=== PATIENT | male | born 1970 | race African-American/Black ===

== ENCOUNTER 2017-06-30 14:10 | Inpatient (IN) | payer OTHER ==
[2017-06-30 16:16] VITALS: BMI 28.7
[2017-06-30] MEDS ORDERED: MENTHOL/PHENOL 1 EACH UD MM PRN (16:42)
[2017-06-30] MEDS ORDERED: hydrOXYzine PAMOATE 50 MG CAPSULE (FP) PO PRN (16:42)
[2017-06-30] MEDS ORDERED: chlordiazePOXIDE HCL 25 MG CAPSULE PO PRN (16:42)
[2017-06-30] MEDS ORDERED: MAG HYDROX/AL HYDROX/SIMETH 30 ML UNIT-DOSE CUP PO PRN (16:42)
[2017-06-30] MEDS ORDERED: LOPERAMIDE HCL 2 MG CAPSULE PO PRN (16:42)
[2017-06-30] MEDS ORDERED: chlordiazePOXIDE HCL 25 MG CAPSULE PO ONE (16:42)
[2017-06-30] MEDS ORDERED: guaiFENesin/D-METHORPHAN HB 10 ML UNIT-DOSE CUPS PO PRN (16:42)
[2017-06-30] MEDS ORDERED: NICOTINE POLACRILEX 2 MG GUM BC PRN (16:42)
[2017-06-30] MEDS ORDERED: P-EPHED 60MG/TRIPROLIDI 2.5MG TABLET PO PRN (16:42)
[2017-06-30] MEDS ORDERED: MAGNESIUM HYDROX 2400MG/30ML ORAL SUSPENSION 30 ML CUP PO PRN (16:42)
[2017-06-30] MEDS ORDERED: MAGNESIUM CITRATE 300 ML BOTTLE PO PRN (16:42)
--- NOTE | 2017-06-30 16:42 | HP ---
CIWA Score - CIWA Score Nausea/Vomitin Muscle Tremors: 4-Moderate,w/Arms Extend Anxiety: 4-Mod. Anxious/Guarded Agitation: 4-Moderately Restless Paroxysmal Sweats: 3 Orientation: 0-Oriented Tacttile Disturbances: 0-None Auditory Disturbances: 0-None Visual Disturbances: 0-None Headache: 4-Moderately Severe CIWA-Ar Total Score: 22 Admission ROS BHS - HPI Chief Complaint: alcohol withdrawal sx Allergies/Adverse Reactions: Allergies Allergy/AdvReac Type Severity Reaction Status Date / Time No Known Allergies Allergy Verified 06/30/17 16:30 History of Present Illness: 47 yo m started drinking heavily age 32, drinks daily spirits last drink today liquor [place] no h/o seiuzres, no DTs smokes cannbis and cocaine daily also sniffs PMHx depression, insomnia, PTSD, HTN has ot been takingmeds hctz 12.5mg daily. no h/o suicide attempts reports SAEID when he does not drink. here today because " heneeded the help" Exam Limitations: No Limitations - Ebola screening Have you traveled outside of the country in the last 21 days: No Have you had contact with anyone from an Ebola affected area: No Have you been sick,other than usual withdrawal symptoms: No Do you have a fever: No - Review of Systems Constitutional: Chills, Diaphoresis, Night Sweats, Changes in sleep, Weakness, Weight Stable EENT: reports: No Symptoms Reported Respiratory: reports: Cough (smokers, dry no sputum) Cardiac: reports: No Symptoms Reported GI: reports: Nausea, Poor Appetite, Poor Fluid Intake, Indigestion, Abdominal cramping : reports: No Symptoms Reported Musculoskeletal: reports: No Symptoms Reported Integumentary: reports: Flushing, Sweating Neuro: reports: Headache (severe), Numbness, Paresthesia, Tingling, Tremors, Weakness Endocrine: reports: No Symptoms Reported Hematology: reports: No Symptoms Reported Psychiatric: reports: Judgement Intact, Mood/Affect Appropiate, Agitated, Anxious, Depressed Other Systems: Reviewed and Negative Patient History - Patient Medical History Hx Anemia: No Hx Asthma: No Hx Chronic Obstructive Pulmonary Disease (COPD): No Hx Cancer: No Hx Cardiac Disorders: No Hx Congestive Heart Failure: No Hx Hypertension: Yes (non compliant with meds.) Hx Hypercholesterolemia: No Hx Pacemaker: No HX Cerebrovascular Accident: No Hx Seizures: No Hx Dementia: No Hx Diabetes: No Hx Gastrointestinal Disorders: No Hx Liver Disease: No Hx Genitourinary Disorders: No Hx Sexually Transmitted Disorders: No Hx Renal Disease (ESRD): No Hx Thyroid Disease: No Hx Human Immunodeficiency Virus (HIV): No Hx Hepatitis C: No Hx Depression: Yes (PTSD in ) Hx Suicide Attempt: No Hx Bipolar Disorder: No Hx Schizophrenia: No Other Medical History: insomnia - Patient Surgical History Past Surgical History: No Anesthesia Reaction: No - PPD History Previous Implant?: Yes Documented Results: Negative w/o proof Implanted On Prior [facility] Admission?: Yes PPD to be Administered?: Yes - Reproductive History Patient is a Female of Child Bearing Age (11 -55 yrs old): No Patient : No - Smoking Cessation Smoking history: Current every day smoker Have you smoked in the past 12 months: Yes Aproximately how many cigarettes per day: 10 Hx Chewing Tobacco Use: No Initiated information on smoking cessation: Yes 'Breaking Loose' booklet given: 06/30/17 - Substance & Tx. History Hx Alcohol Use: Yes Hx Substance Use: Yes Substance Use Type: Alcohol, Cocaine, Marijuana Hx Substance Use Treatment: Yes - Substances Abused Alcohol Route: Oral Frequency: Daily Amount used: 2 pints vodka Age of first use: 32 Date of Last Use: 06/30/17 Cocaine Route: Inhalation Frequency: Daily Amount used: $50-100 Age of first use: 31 Date of Last Use: 06/30/17 Marijuana/Hashish Route: Smoking Frequency: Daily Amount used: $40 Age of first use: 35 Date of Last Use: 06/29/17 Family Disease History - Family Disease History Family Disease History: Other: Brother (elephatiasis) Admission Physical Exam BHS - Vital Signs Vital Signs: Vital Signs - 24 hr 06/30/17 16:14 Temperature 97.2 F L Pulse Rate 69 Respiratory 20 Rate Blood Pressure 133/96 - Physical General Appearance: Yes: Nourished, Appropriately Dressed, Disheveled, Mild Distress, Tremorous, Irritable, Sweating, Anxious HEENTM: Yes: Within Normal Limits, EOMI, Hearing grossly Normal, Normal ENT Inspection, Normocephalic, Pharynx Normal Respiratory: Yes: Within Normal Limits, Chest Non-Tender, Lungs Clear, Normal Breath Sounds, No Respiratory Distress, No Accessory Muscle Use Neck: Yes: Within Normal Limits, No masses,lesions,Nodules, Supple, Trachea in good position Breast: Yes: Breast Exam Deferred Cardiology: Yes: Within Normal Limits, Regular Rhythm, Regular Rate, S1, S2 Abdominal: Yes: Normal Bowel Sounds, Non Tender, Flat, Soft, Increased Bowel Sounds Genitourinary: Yes: Within Normal Limits Back: Yes: Within Normal Limits, Normal Inspection Musculoskeletal: Yes: Within Normal Limits, full range of Motion, Gait Steady, Pelvis Stable Neurological: Yes: anesthesia associate II-XII NML intact, Fully Oriented, Alert, Motor Strength 5/5, Normal Response, Depressed Affect Integumentary: Yes: Normal Color, Warm, Diaphoresis, Moist Lymphatic: Yes: Within Normal Limits - Addiitonal Findings: alcohol withdrawal sx - Diagnostic (1) Alcohol dependence with uncomplicated withdrawal Current Visit: Yes Status: Acute (2) Cocaine dependence, uncomplicated Current Visit: Yes Status: Acute (3) Cannabis dependence, uncomplicated Current Visit: Yes Status: Acute (4) Essential hypertension Current Visit: Yes Status: Acute (5) Insomnia Current Visit: Yes Status: Acute (6) Depression Current Visit: Yes Status: Acute (7) PTSD (post-traumatic stress disorder) Current Visit: Yes Status: Acute Cleared for Admission [facility] - Detox or Rehab [facility] Level of Care: Medically Managed Detox Regimen/Protocol: Librium S Breath Alcohol Content Breath Alcohol Content: 0 Urine Drug Screen - Results Drug Screen Negative: No Urine Drug Screen Results: OLESYA-Cocaine
[2017-06-30] MEDS: ACETAMINOPHEN 325 MG TABLET (FP) PO PRN (18:36)
[2017-06-30] MEDS: HYDROCHLOROTHIAZIDE 12.5 MG CAPSULE (FP) PO SCH (18:36)
[2017-06-30] MEDS: NICOTINE 14 MG/24 HOURS TOPICAL PATCH TD SCH (18:41)
[2017-06-30 20:45] LABS: URINE APPEARANCE SLCLOUDY; URINE BILIRUBIN NEGATIVE (NEGATIVE); URINE BLOOD NEGATIVE (NEGATIVE); URINE COLOR YELLOW; URINE GLUCOSE (UA) NEGATIVE (NEGATIVE); URINE KETONE NEGATIVE (NEGATIVE); URINE NITRITE NEGATIVE (NEGATIVE); URINE PROTEIN NEGATIVE (NEGATIVE); URINE UROBILINOGEN NEGATIVE mg/dL (0.2-1.0)
[2017-06-30] MEDS: diphenhydrAMINE HCL 50 MG CAPSULE PO PRN (22:22)
[2017-06-30] MEDS: chlordiazePOXIDE HCL 25 MG CAPSULE PO SCH (22:22)
[2017-06-30] MEDS: THIAMINE HCL 100 MG TABLET (FP) PO SCH (22:22)
[2017-06-30 22:40] LABS: URINE LEUK ESTERASE Negative (NEGATIVE)
[2017-07-01] MEDS: chlordiazePOXIDE HCL 25 MG CAPSULE PO SCH ×4 (05:38→22:05)
[2017-07-01] MEDS: ACETAMINOPHEN 325 MG TABLET (FP) PO PRN ×2 (05:39→10:19)
--- NOTE | 2017-07-01 08:46 | CONSULT ---
[facility] Psychiatric Consult - Data Date of interview: 07/01/17 Admission source: [facility] Identifying data: This is 47 years old male with no psychiatric hospitalization history intoxicated with: Alcohol, Cannabis, Cocaine and Nicotine Substance Abuse History: - Smoking Cessation. Smoking history: Current every day smoker. Have you smoked in the past 12 months: Yes. Aproximately how many cigarettes per day: 10. Hx Chewing Tobacco Use: No. Initiated information on smoking cessation: Yes. 'Breaking Loose' booklet given: 06/30/17. - Substance & Tx. History. Hx Alcohol Use: Yes. Hx Substance Use: Yes. Substance Use Type : Alcohol, Cocaine, Marijuana. Hx Substance Use Treatment: Yes. - Substances Abused. Alcohol. Route: Oral. Frequency: Daily. Amount used: 2 pints vodka. Age of first use: 32. Date of Last Use: 06/30/17. Cocaine. Route: Inhalation. Frequency: Daily. Amount used: $50-100. Age of first use: 31. Date of Last Use: 06/30/17. Marijuana/Hashish. Route: Smoking. Frequency: Daily. Amount used: $40. Age of first use: 35. Date of Last Use: 06/29/17 Medical History: HTN Psychiatric History: Patient reports history of anxiety and depression, history of PTSD Physical/Sexual Abuse/Trauma History: Denies Additional Comment: Observation. Detox Unit Care Protocol Mental Status Exam - Mental Status Exam Alert and Oriented to: Person Cognitive Function: Fair Patient Appearance: Unkempt Mood: Sad Patient Behavior: Sedated Speech Pattern: Delayed Voice Loudness: Mildly Soft/Quiet Thought Process: Goal Oriented Thought Disorder: Being Controlled Hallucinations: Denies Suicidal Ideation: Denies Homicidal Ideation: Denies Insight/Judgement: Fair Sleep: Difficulty falling asleep Appetite: Fair Muscle strength/Tone: Mild Hypotonicity Gait/Station: Shuffling Additional Comments: Observation. Detox Unit Care Protocol Psychiatric Findings - Problem List ([place] 1, 2,3) (1) Alcohol dependence with uncomplicated withdrawal Current Visit: Yes Status: Acute (2) Cannabis dependence, uncomplicated Current Visit: Yes Status: Acute (3) Cocaine dependence, uncomplicated Current Visit: Yes Status: Acute (4) PTSD (post-traumatic stress disorder) Current Visit: Yes Status: Acute (5) Drug-induced mood disorder Current Visit: Yes Status: Acute - Initial Treatment Plan Initial Treatment Plan: Observation. Detox Unit Care Protocol
[2017-07-01] MEDS: NICOTINE 14 MG/24 HOURS TOPICAL PATCH TD SCH (10:18)
[2017-07-01] MEDS: PRENATAL VITAMINS W/ FOLIC ACID TABLET (FP) PO SCH (10:18)
[2017-07-01] MEDS: HYDROCHLOROTHIAZIDE 12.5 MG CAPSULE (FP) PO SCH (10:18)
--- NOTE | 2017-07-01 10:25 | PN ---
[facility] CIWA - CIWA Score Nausea/Vomitin-No Nausea/No Vomiting Muscle Tremors: 4-Moderate,w/Arms Extend Anxiety: 4-Mod. Anxious/Guarded Agitation: 4-Moderately Restless Paroxysmal Sweats: 1-Minimal Palms Moist Orientation: 0-Oriented Tacttile Disturbances: 3-Moderate Itch/Numb/Burn Auditory Disturbances: 0-None Visual Disturbances: 0-None Headache: 0-None Present CIWA-Ar Total Score: 16 BHS Progress Note (SOAP) Subjective: ALERT O X 3. NAD. OOB AMBULATING WITH STEADY GAIT. REPORTS "SLUGGISHNESS". Objective: 07/01/17 10:23 Vital Signs 07/01/17 07/01/17 07/01/17 03:45 06:35 09:17 Temperature 97.3 F L 96.3 F L Pulse Rate 61 102 H Respiratory 18 18 20 Rate Blood Pressure 110/60 126/87 Laboratory Last Values Urine Color Yellow 06/30/17 20:00 Urine Appearance Slcloudy 06/30/17 20:00 Urine pH 6.0 (5.0-8.0) 06/30/17 20:00 Ur Specific [place] 1.020 (1.005-1.025) 06/30/17 20:00 Urine Protein Negative (NEGATIVE) 06/30/17 20:00 Urine Glucose (UA) Negative (NEGATIVE) 06/30/17 20:00 Urine Ketones Negative (NEGATIVE) 06/30/17 20:00 Urine Blood Negative (NEGATIVE) 06/30/17 20:00 Urine Nitrite Negative (NEGATIVE) 06/30/17 20:00 Urine Bilirubin Negative (NEGATIVE) 06/30/17 20:00 Urine Urobilinogen Negative mg/dL (0.2-1.0) 06/30/17 20:00 Ur Leukocyte Esterase Negative (NEGATIVE) 06/30/17 20:00 OTHER LABS PENDING Assessment: 07/01/17 10:24 WITHDRAWAL SX Plan: CONTINUE DETOX
[2017-07-01 10:41] LABS: MCH 31.2 pg (25.7-33.7); MCHC 32.9 g/dl (32.0-35.9); MEAN CELL VOLUME 94.9 fl (80-96); MEAN PLT VOLUME 8.6 fl (7.5-11.1); PLATELET COUNT 208 K/MM3 (134-434); RDW 13.2 % (11.9-15.9); WHITE BLOOD COUNT 3.6 K/mm3 (4.0-10.0)
[2017-07-01 10:56] LABS: ALBUMIN 3.5 g/dl (3.4-5.0); ANION GAP 7 (8-16); CO2 26 mmol/L (21-32); GLUCOSE,RANDOM 118 mg/dL (74-106); SGOT/AST 25 U/L (15-37); SGPT/ALT 24 U/L (12-78)
[2017-07-01 10:58] LABS: ALK PHOS 68 U/L (45-117); BILIRUBIN,TOTAL 0.2 mg/dL (0.2-1.0); CALCIUM 9.2 mg/dL (8.5-10.1); CREATININE 1.2 mg/dL (0.7-1.3); TOT PROT 8.2 g/dl (6.4-8.2)
--- NOTE | 2017-07-01 13:07 | EKG ---
Test Reason : Blood Pressure : / mmHG Vent. Rate : 057 BPM Atrial Rate : 057 BPM P-R Int : 182 ms QRS Dur : 098 ms QT Int : 442 ms P-R-T Axes : 033 052 021 degrees QTc Int : 430 ms SINUS BRADYCARDIA MINIMAL VOLTAGE CRITERIA FOR LVH, MAY BE NORMAL VARIANT BORDERLINE ECG NO PREVIOUS ECGS AVAILABLE Confirmed by CLEVE THAYER MD ([id number]) on 07/01/2017 1:07:09 PM Referred By: Confirmed By:CLEVE THAYER MD
[2017-07-01] MEDS: THIAMINE HCL 100 MG TABLET (FP) PO SCH (22:04)
[2017-07-01] MEDS: diphenhydrAMINE HCL 50 MG CAPSULE PO PRN (22:05)
[2017-07-02] MEDS: chlordiazePOXIDE HCL 25 MG CAPSULE PO SCH ×3 (06:20→17:20)
[2017-07-02] MEDS: ACETAMINOPHEN 325 MG TABLET (FP) PO PRN (06:20)
[2017-07-02] MEDS: HYDROCHLOROTHIAZIDE 12.5 MG CAPSULE (FP) PO SCH (10:13)
[2017-07-02] MEDS: PRENATAL VITAMINS W/ FOLIC ACID TABLET (FP) PO SCH (10:13)
[2017-07-02] MEDS: NICOTINE 14 MG/24 HOURS TOPICAL PATCH TD SCH (10:14)
[2017-07-02] MEDS: IBUPROFEN 400 MG TABLET (FP) PO PRN (11:01)
--- NOTE | 2017-07-02 11:25 | PN ---
[facility] CIWA - CIWA Score Nausea/Vomitin-No Nausea/No Vomiting Muscle Tremors: 5 Anxiety: 5 Agitation: 4-Moderately Restless Paroxysmal Sweats: 1-Minimal Palms Moist Orientation: 0-Oriented Tacttile Disturbances: 0-None Auditory Disturbances: 0-None Visual Disturbances: 0-None Headache: 0-None Present CIWA-Ar Total Score: 15 BHS Progress Note (SOAP) Subjective: ANXIETY,SWEATS, FATIGUE. Objective: 07/02/17 11:24 Vital Signs Temperature 97.7 F 07/02/17 06:36 Pulse Rate 79 07/02/17 06:36 Respiratory Rate 18 07/02/17 06:36 Blood Pressure 102/63 07/02/17 06:36 O2 Sat by Pulse Oximetry (%) Laboratory Last Values WBC 3.6 K/mm3 (4.0-10.0) L 07/01/17 08:15 RBC 4.37 M/mm3 (4.00-5.60) 07/01/17 08:15 Hgb 13.6 GM/dL (11.7-16.9) 07/01/17 08:15 Hct 41.5 % (35.4-49) 07/01/17 08:15 MCV 94.9 fl (80-96) 07/01/17 08:15 MCH 31.2 pg (25.7-33.7) 07/01/17 08:15 MCHC 32.9 g/dl (32.0-35.9) 07/01/17 08:15 RDW 13.2 % (11.9-15.9) 07/01/17 08:15 Plt Count 208 K/MM3 (134-434) 07/01/17 08:15 MPV 8.6 fl (7.5-11.1) 07/01/17 08:15 Sodium 136 mmol/L (136-145) 07/01/17 07:20 Potassium 4.0 mmol/L (3.5-5.1) 07/01/17 07:20 Chloride 103 mmol/L (98-107) 07/01/17 07:20 Carbon Dioxide 26 mmol/L (21-32) 07/01/17 07:20 Anion Gap 7 (8-16) L 07/01/17 07:20 BUN 15 mg/dL (7-18) 07/01/17 07:20 Creatinine 1.2 mg/dL (0.7-1.3) 07/01/17 07:20 Creat Clearance w eGFR > 60 (>60) 07/01/17 07:20 Random Glucose 118 mg/dL (74-106) H 07/01/17 07:20 Calcium 9.2 mg/dL (8.5-10.1) 07/01/17 07:20 Total Bilirubin 0.2 mg/dL (0.2-1.0) 07/01/17 07:20 AST 25 U/L (15-37) 07/01/17 07:20 ALT 24 U/L (12-78) 07/01/17 07:20 Alkaline Phosphatase 68 U/L (45-117) 07/01/17 07:20 Total Protein 8.2 g/dl (6.4-8.2) 07/01/17 07:20 Albumin 3.5 g/dl (3.4-5.0) 07/01/17 07:20 Urine Color Yellow 06/30/17 20:00 Urine Appearance Slcloudy 06/30/17 20:00 Urine pH 6.0 (5.0-8.0) 06/30/17 20:00 Ur Specific [place] 1.020 (1.005-1.025) 06/30/17 20:00 Urine Protein Negative (NEGATIVE) 06/30/17 20:00 Urine Glucose (UA) Negative (NEGATIVE) 06/30/17 20:00 Urine Ketones Negative (NEGATIVE) 06/30/17 20:00 Urine Blood Negative (NEGATIVE) 06/30/17 20:00 Urine Nitrite Negative (NEGATIVE) 06/30/17 20:00 Urine Bilirubin Negative (NEGATIVE) 06/30/17 20:00 Urine Urobilinogen Negative mg/dL (0.2-1.0) 06/30/17 20:00 Ur Leukocyte Esterase Negative (NEGATIVE) 06/30/17 20:00 RPR Titer Nonreactive (NONREACTIVE) 07/01/17 07:20 Assessment: 07/02/17 11:24 WITHDRAWAL SX Plan: CONTINUE DETOX
[2017-07-02] MEDS: chlordiazePOXIDE 5 MG CAPSULE PO SCH (22:20)
[2017-07-02] MEDS: diphenhydrAMINE HCL 50 MG CAPSULE PO PRN (22:20)
[2017-07-02] MEDS: THIAMINE HCL 100 MG TABLET (FP) PO SCH (22:21)
[2017-07-03] MEDS: chlordiazePOXIDE 5 MG CAPSULE PO SCH ×3 (05:16→17:35)
[2017-07-03] MEDS: HYDROCHLOROTHIAZIDE 12.5 MG CAPSULE (FP) PO SCH (10:44)
[2017-07-03] MEDS: PRENATAL VITAMINS W/ FOLIC ACID TABLET (FP) PO SCH (10:44)
[2017-07-03] MEDS: NICOTINE 14 MG/24 HOURS TOPICAL PATCH TD SCH (10:46)
--- NOTE | 2017-07-03 13:53 | PN ---
BHS Progress Note (SOAP) Subjective: Sweating,interrupted sleep,restless. Objective: 07/03/17 13:52 Vital Signs - 8 hr 07/03/17 07/03/17 06:00 09:28 Temperature 98.1 F 97.1 F L Pulse Rate 67 90 Respiratory 18 18 Rate Blood Pressure 119/66 115/86 Laboratory Tests 06/30/17 07/01/17 07/01/17 20:00 07:20 07:20 WBC RBC Hgb Hct MCV MCH MCHC RDW Plt Count MPV Sodium 136 Potassium 4.0 Chloride 103 Carbon Dioxide 26 Anion Gap 7 L BUN 15 Creatinine 1.2 Creat Clearance w eGFR > 60 Random Glucose 118 H Calcium 9.2 Total Bilirubin 0.2 AST 25 ALT 24 Alkaline Phosphatase 68 Total Protein 8.2 Albumin 3.5 Urine Color Yellow Urine Appearance Slcloudy Urine pH 6.0 Ur Specific [place] 1.020 Urine Protein Negative Urine Glucose (UA) Negative Urine Ketones Negative Urine Blood Negative Urine Nitrite Negative Urine Bilirubin Negative Urine Urobilinogen Negative Ur Leukocyte Esterase Negative RPR Titer Nonreactive 07/01/17 08:15 WBC 3.6 L RBC 4.37 Hgb 13.6 Hct 41.5 MCV 94.9 MCH 31.2 MCHC 32.9 RDW 13.2 Plt Count 208 MPV 8.6 Sodium Potassium Chloride Carbon Dioxide Anion Gap BUN Creatinine Creat Clearance w eGFR Random Glucose Calcium Total Bilirubin AST ALT Alkaline Phosphatase Total Protein Albumin Urine Color Urine Appearance Urine pH Ur Specific [place] Urine Protein Urine Glucose (UA) Urine Ketones Urine Blood Urine Nitrite Urine Bilirubin Urine Urobilinogen Ur Leukocyte Esterase RPR Titer labs noted Assessment: 07/03/17 13:52 Withdrawal sx. Plan: Continue detox
[2017-07-03] MEDS: IBUPROFEN 400 MG TABLET (FP) PO PRN (19:15)
[2017-07-03] MEDS: THIAMINE HCL 100 MG TABLET (FP) PO SCH (22:12)
[2017-07-03] MEDS: chlordiazePOXIDE HCL 10 MG CAPSULE PO SCH (22:12)
[2017-07-03] MEDS: diphenhydrAMINE HCL 50 MG CAPSULE PO PRN (22:12)
[2017-07-04] MEDS: chlordiazePOXIDE HCL 10 MG CAPSULE PO SCH ×2 (05:19→10:29)
[2017-07-04 09:31] VITALS: BP 130/83; PULSE 69; TEMP 96.9
[2017-07-04] MEDS: NICOTINE 14 MG/24 HOURS TOPICAL PATCH TD SCH (10:29)
[2017-07-04] MEDS: PRENATAL VITAMINS W/ FOLIC ACID TABLET (FP) PO SCH (10:29)
[2017-07-04] MEDS: HYDROCHLOROTHIAZIDE 12.5 MG CAPSULE (FP) PO SCH (10:29)
--- NOTE | 2017-07-04 14:21 | DS ---
[facility] Detox Discharge Summary Admission Date: 06/30/17 Discharge Date: 07/04/17 - History Present History: Alcohol Dependence, Cannabis Dependence, Cocaine Dependence Pertinent Past History: HTN - Physical Exam Results Vital Signs: Vital Signs Temperature 96.9 F L 07/04/17 09:31 Pulse Rate 69 07/04/17 09:31 Respiratory Rate 18 07/04/17 09:31 Blood Pressure 130/83 07/04/17 09:31 O2 Sat by Pulse Oximetry (%) Pertinent Admission Physical Exam Findings: Withdrawal symptoms Laboratory Tests 06/30/17 07/01/17 07/01/17 20:00 07:20 07:20 WBC RBC Hgb Hct MCV MCH MCHC RDW Plt Count MPV Sodium 136 Potassium 4.0 Chloride 103 Carbon Dioxide 26 Anion Gap 7 L BUN 15 Creatinine 1.2 Creat Clearance w eGFR > 60 Random Glucose 118 H Calcium 9.2 Total Bilirubin 0.2 AST 25 ALT 24 Alkaline Phosphatase 68 Total Protein 8.2 Albumin 3.5 Urine Color Yellow Urine Appearance Slcloudy Urine pH 6.0 Ur Specific [place] 1.020 Urine Protein Negative Urine Glucose (UA) Negative Urine Ketones Negative Urine Blood Negative Urine Nitrite Negative Urine Bilirubin Negative Urine Urobilinogen Negative Ur Leukocyte Esterase Negative RPR Titer Nonreactive 07/01/17 08:15 WBC 3.6 L RBC 4.37 Hgb 13.6 Hct 41.5 MCV 94.9 MCH 31.2 MCHC 32.9 RDW 13.2 Plt Count 208 MPV 8.6 Sodium Potassium Chloride Carbon Dioxide Anion Gap BUN Creatinine Creat Clearance w eGFR Random Glucose Calcium Total Bilirubin AST ALT Alkaline Phosphatase Total Protein Albumin Urine Color Urine Appearance Urine pH Ur Specific [place] Urine Protein Urine Glucose (UA) Urine Ketones Urine Blood Urine Nitrite Urine Bilirubin Urine Urobilinogen Ur Leukocyte Esterase RPR Titer Labs noted - Treatment Hospital Course: Detox Protocol Followed, Detoxed Safely, Responded well, Discharged Condition Good - Medication Discharge Medications: Ambulatory Orders Hydrochlorothiazide [Hctz -] 12.5 mg PO DAILY 06/30/17 - Diagnosis (1) Alcohol dependence with uncomplicated withdrawal Status: Acute (2) Cannabis dependence, uncomplicated Status: Chronic (3) Cocaine dependence, uncomplicated Status: Chronic (4) Essential hypertension Status: Chronic (5) Insomnia Status: Chronic (6) PTSD (post-traumatic stress disorder) Status: Chronic - AMA Did Patient Leave Against Medical Advice: No (Follow up with PCP in 1-2 weeks )
== END 2017-07-04 09:45 | disposition home or self-care (01) | DRG 897 ==
LOC: YASAS 14:10 → Y3N 17:42
PROVIDERS: ADMIT Internal Medicine; ATTEND Internal Medicine
PROC: HZ2ZZZZ Detoxification Services for Substance Abuse Treatment (ICD-10-PCS; principal; 2017-06-30)
DX: F10.230 Alcohol dependence with withdrawal, uncomplicated (principal); F14.20 Cocaine dependence, uncomplicated; F12.20 Cannabis dependence, uncomplicated; F17.210 Nicotine dependence, cigarettes, uncomplicated; F32.9 Major depressive disorder, single episode, unspecified; F43.10 Post-traumatic stress disorder, unspecified; F19.24 Other psychoactive substance dependence with psychoactive substance-induced mood disorder; I10 Essential (primary) hypertension; G47.00 Insomnia, unspecified; Z91.14 Patient's other noncompliance with medication regimen
CPT/HCPCS: 36415; 80053; 81003; 85027; 86593; 93005; 93010

== ENCOUNTER 2023-11-07 13:03 | Inpatient (IN) | payer OTHER ==
[2023-11-07 14:03] VITALS: BMI 28.5
[2023-11-07] MEDS ORDERED: NALOXONE HCL 0.4 MG/ML VIAL IM PRN (15:50)
[2023-11-07] MEDS ORDERED: NICOTINE POLACRILEX 2 MG LOZENGE BC PRN (15:50)
[2023-11-07] MEDS ORDERED: BENZONATATE 200 MG CAPSULE PO PRN (15:50)
[2023-11-07] MEDS ORDERED: ACETAMINOPHEN 325 MG TABLET (FP) PO PRN (15:50)
[2023-11-07] MEDS ORDERED: BISMUTH SUBSALICYLATE 524 MG/30 ML PO PRN (15:50)
[2023-11-07] MEDS ORDERED: MAG HYDROX/AL HYDROX/SIMETH 30 ML UNIT-DOSE CUP PO PRN (15:50)
[2023-11-07] MEDS ORDERED: NALOXONE HCL (KLOXXADO) 8 MG SPRAY NS PRN (15:50)
[2023-11-07] MEDS ORDERED: DICYCLOMINE HCL 10 MG CAPSULE PO PRN (15:50)
[2023-11-07] MEDS ORDERED: ONDANSETRON *ODT* 4 MG TABLET SL PRN (15:50)
[2023-11-07] MEDS ORDERED: BENZOCAINE/MENTHOL (CHLORASEPTIC ) LOZENGE MM PRN (15:50)
[2023-11-07] MEDS ORDERED: POLYETHYLENE GLYCOL (HEALTHYLAX) 3350 17 GM PACKET PO PRN (15:50)
[2023-11-07] MEDS ORDERED: LOPERAMIDE HCL 2 MG CAPSULE PO PRN (15:50)
[2023-11-07] MEDS ORDERED: guaiFENesin 600 MG TABLET.ER (FP) PO PRN (15:50)
[2023-11-07] MEDS: chlordiazePOXIDE HCL 25 MG CAPSULE PO PRN (18:01)
[2023-11-07] MEDS: THIAMINE HCL 100 MG TABLET (FP) PO SCH (22:10)
[2023-11-07] MEDS: chlordiazePOXIDE HCL 25 MG CAPSULE PO SCH (22:10)
[2023-11-07] MEDS: MELATONIN 5 MG TABLETS PO SCH (22:11)
[2023-11-07] MEDS: METHOCARBAMOL 500 MG TABLET PO PRN (22:12)
[2023-11-08] MEDS: PRENATAL VITAMINS W/ FOLIC ACID TABLET (FP) PO SCH (10:29)
[2023-11-08] MEDS: HYDROCHLOROTHIAZIDE 12.5 MG CAPSULE (FP) PO SCH (10:30)
[2023-11-08] MEDS: NICOTINE 21 MG/24 HOURS TOPICAL PATCH TD SCH (10:31)
[2023-11-08 10:44] LABS: HEMATOCRIT 33.3 % (35.4-49); HEMOGLOBIN 10.9 GM/dL (11.7-16.9); MCH 31.2 pg (25.7-33.7); MCHC 32.9 g/dl (32.0-35.9); MEAN CELL VOLUME 94.9 fl (80-96); MEAN PLT VOLUME 7.8 fl (7.5-11.1); PLATELET COUNT 195 10^3/uL (134-434); RDW 13.6 % (11.9-15.9); WHITE BLOOD COUNT 4.8 K/mm3 (4.0-10.0)
[2023-11-08 10:46] LABS: CHLORIDE 107 mmol/L (98-107); POTASSIUM 3.7 mmol/L (3.5-5.1); SODIUM 141 mmol/L (136-145)
[2023-11-08 10:48] LABS: CALCIUM 8.3 mg/dL (8.5-10.1); GLUCOSE,RANDOM 108 mg/dL (74-106)
[2023-11-08 10:49] LABS: ANION GAP 6 mmol/L (4-13); BLOOD UREA NITROGEN 21.1 mg/dL (7-18); CO2 28 mmol/L (21-32)
[2023-11-08 10:51] LABS: SGPT/ALT 25 U/L (13-61)
[2023-11-08 10:52] LABS: CREATININE 0.8 mg/dL (0.55-1.3); SGOT/AST 34 U/L (15-37)
[2023-11-08 10:53] LABS: BILIRUBIN,TOTAL 0.2 mg/dL (0.2-1)
[2023-11-08 10:54] LABS: ALK PHOS 66 U/L (45-117)
[2023-11-08] MEDS ORDERED: LACTULOSE 20 GM/30 ML UDC (FOR ORAL USE ONLY) PO SCH (12:00)
[2023-11-08] MEDS: risperiDONE 1 MG TABLET PO SCH (12:13)
[2023-11-08] MEDS: LACTULOSE 20 GM/30 ML UDC (FOR ORAL USE ONLY) PO SCH (13:07)
[2023-11-08] MEDS: BICTEGRAV/EMTRICIT/TENOFOV (BIKTARVY) 50-200-25 MG TABLET PO SCH (13:07)
[2023-11-08] MEDS: MAGNESIUM HYDROX 2400MG/30ML ORAL SUSPENSION 30 ML CUP PO PRN (21:02)
[2023-11-08] MEDS: IBUPROFEN 400 MG TABLET (FP) PO PRN (22:35)
[2023-11-09] MEDS: chlordiazePOXIDE HCL 25 MG CAPSULE PO SCH (05:45)
[2023-11-09] MEDS: IBUPROFEN 600 MG TABLET (FP) PO PRN (12:43)
[2023-11-10] MEDS ORDERED: chlordiazePOXIDE HCL 10 MG CAPSULE PO PRN
[2023-11-10] MEDS: chlordiazePOXIDE HCL 10 MG CAPSULE PO SCH (05:37)
[2023-11-11] MEDS: chlordiazePOXIDE HCL 10 MG CAPSULE PO SCH (05:33)
[2023-11-11] MEDS: hydrOXYzine PAMOATE 25 MG CAPSULE (FP) PO PRN (10:11)
[2023-11-12] MEDS: chlordiazePOXIDE HCL 10 MG CAPSULE PO ONE (05:26)
[2023-11-12 09:48] VITALS: BP 138/77; PULSE 95; RESP 16; TEMP 97.5
== END 2023-11-12 10:20 | disposition home or self-care (01) | DRG 897 ==
LOC: YASAS 13:03 → Y6N 16:32
PROVIDERS: ADMIT Allergy & Immunology; ATTEND Surgery
PROC: HZ2ZZZZ Detoxification Services for Substance Abuse Treatment (ICD-10-PCS; principal; 2023-11-07)
DX: F10.230 Alcohol dependence with withdrawal, uncomplicated (principal); F14.20 Cocaine dependence, uncomplicated; F19.280 Other psychoactive substance dependence with psychoactive substance-induced anxiety disorder; F19.282 Other psychoactive substance dependence with psychoactive substance-induced sleep disorder; F12.20 Cannabis dependence, uncomplicated; F17.210 Nicotine dependence, cigarettes, uncomplicated; F20.9 Schizophrenia, unspecified; F43.10 Post-traumatic stress disorder, unspecified; Z21 Asymptomatic human immunodeficiency virus [HIV] infection status; I10 Essential (primary) hypertension; R76.8 Other specified abnormal immunological findings in serum; R79.89 Other specified abnormal findings of blood chemistry; Z62.810 Personal history of physical and sexual abuse in childhood; Z63.8 Other specified problems related to primary support group; Z28.310 Unvaccinated for COVID-19; Z28.9 Immunization not carried out for unspecified reason
CPT/HCPCS: 36415; 80053; 80307; 82140; 85027; 86593; 86780; 87635; 93005; 93010

== ENCOUNTER 2024-04-22 08:57 | Inpatient (IN) | payer OTHER ==
[2024-04-22 09:33] VITALS: BMI 26.9
[2024-04-22] MEDS ORDERED: LOPERAMIDE HCL 2 MG CAPSULE PO PRN (10:45)
[2024-04-22] MEDS ORDERED: POLYETHYLENE GLYCOL (HEALTHYLAX) 3350 17 GM PACKET PO PRN (10:45)
[2024-04-22] MEDS ORDERED: ONDANSETRON *ODT* 4 MG TABLET SL PRN (10:45)
[2024-04-22] MEDS ORDERED: MAG HYDROX/AL HYDROX/SIMETH 30 ML UNIT-DOSE CUP PO PRN (10:45)
[2024-04-22] MEDS ORDERED: BISMUTH SUBSALICYLATE 524 MG/30 ML PO PRN (10:45)
[2024-04-22] MEDS ORDERED: LORazepam 1 MG TABLET PO PRN (10:45)
[2024-04-22] MEDS ORDERED: BENZONATATE 200 MG CAPSULE PO PRN (10:45)
[2024-04-22] MEDS ORDERED: MAGNESIUM HYDROX 2400MG/30ML ORAL SUSPENSION 30 ML CUP PO PRN (10:45)
[2024-04-22] MEDS ORDERED: BENZOCAINE/MENTHOL (CHLORASEPTIC ) LOZENGE MM PRN (10:45)
[2024-04-22] MEDS ORDERED: NALOXONE (NARCAN) HCL 4 MG/0.1 ML SPRAY NS PRN (10:45)
[2024-04-22] MEDS ORDERED: NALOXONE HCL 0.4 MG/ML VIAL IM PRN (10:45)
[2024-04-22] MEDS ORDERED: NICOTINE POLACRILEX 4 MG LOZENGE BC PRN (10:45)
[2024-04-22] MEDS ORDERED: ACETAMINOPHEN 325 MG TABLET (FP) PO PRN (10:45)
[2024-04-22] MEDS ORDERED: IBUPROFEN 400 MG TABLET (FP) PO PRN (10:45)
[2024-04-22] MEDS: BUDESONIDE/FORMETEROL FUMARATE 80/4.5 mcg INHALER IH SCH (14:52)
[2024-04-22] MEDS: guaiFENesin 600 MG TABLET.ER (FP) PO PRN (15:48)
[2024-04-22] MEDS: LORazepam 2 MG TABLET PO SCH (17:13)
[2024-04-22] MEDS: THIAMINE 100 MG TABLET PO SCH (22:03)
[2024-04-22] MEDS: risperiDONE 1 MG TABLET PO SCH (22:03)
[2024-04-22] MEDS: MELATONIN 5 MG TABLETS PO SCH (22:19)
[2024-04-23] MEDS: METHOCARBAMOL 500 MG TABLET PO PRN (10:16)
[2024-04-23] MEDS: PRENATAL VITAMINS W/ FOLIC ACID TABLET (FP) PO SCH (10:16)
[2024-04-23] MEDS: BICTEGRAV/EMTRICIT/TENOFOV (BIKTARVY) 50-200-25 MG TABLET PO SCH (10:18)
[2024-04-23 10:22] LABS: CHLORIDE 107 mmol/L (98-107); POTASSIUM 4.7 mmol/L (3.5-5.1); SODIUM 139 mmol/L (136-145)
[2024-04-23 10:24] LABS: ALBUMIN 3.3 g/dl (3.4-5.0); ANION GAP 6 mmol/L (4-13); BLOOD UREA NITROGEN 11.6 mg/dL (7-18); CALCIUM 8.7 mg/dL (8.5-10.1); CO2 27 mmol/L (21-32); GLUCOSE,RANDOM 92 mg/dL (74-106); HEMATOCRIT 37.4 % (35.4-49); HEMOGLOBIN 12.7 GM/dL (11.7-16.9); MCH 31.3 pg (25.7-33.7); MCHC 33.9 g/dl (32.0-35.9); MEAN CELL VOLUME 92.1 fl (80-96); MEAN PLT VOLUME 8.2 fl (7.5-11.1); PLATELET COUNT 256 10^3/uL (134-434); RBC 4.07 M/mm3 (4.00-5.60); RDW 14.2 % (11.9-15.9); WHITE BLOOD COUNT 3.9 K/mm3 (4.0-10.0)
[2024-04-23 10:27] LABS: SGOT/AST 21 U/L (15-37); SGPT/ALT 23 U/L (13-61)
[2024-04-23 10:29] LABS: BILIRUBIN,TOTAL 0.2 mg/dL (0.2-1); TOT PROT 8.1 g/dl (6.4-8.2)
[2024-04-23 10:30] LABS: ALK PHOS 70 U/L (45-117)
[2024-04-23] MEDS: NICOTINE POLACRILEX 4 MG GUM BUC PRN (15:07)
[2024-04-24] MEDS: LORazepam 1 MG TABLET PO SCH (05:21)
[2024-04-25] MEDS ORDERED: LORazepam 0.5 MG TABLET PO PRN
[2024-04-25] MEDS: LORazepam 0.5 MG TABLET PO SCH (05:29)
[2024-04-25] MEDS: HYDROCORTISONE 0.5% TOPICAL CREAM 30 GM TUBE TP SCH (16:05)
[2024-04-25] MEDS: IBUPROFEN 600 MG TABLET (FP) PO PRN (22:32)
[2024-04-26] MEDS: LORazepam 0.5 MG TABLET PO ONE (05:31)
[2024-04-26 08:42] VITALS: TEMP 97.7
[2024-04-26] MEDS: DICYCLOMINE HCL 10 MG CAPSULE PO PRN (09:25)
[2024-04-26 12:32] VITALS: BP 145/88; PULSE 65; RESP 16
== END 2024-04-26 13:12 | disposition home or self-care (01) | DRG 897 ==
LOC: YASAS 08:57 → Y6N 11:29
PROVIDERS: ADMIT Allergy & Immunology; ATTEND Surgery
PROC: HZ2ZZZZ Detoxification Services for Substance Abuse Treatment (ICD-10-PCS; principal; 2024-04-22)
DX: F10.230 Alcohol dependence with withdrawal, uncomplicated (principal); F14.20 Cocaine dependence, uncomplicated; F12.20 Cannabis dependence, uncomplicated; F17.210 Nicotine dependence, cigarettes, uncomplicated; F20.9 Schizophrenia, unspecified; F19.982 Other psychoactive substance use, unspecified with psychoactive substance-induced sleep disorder; I10 Essential (primary) hypertension; Z21 Asymptomatic human immunodeficiency virus [HIV] infection status; Z62.810 Personal history of physical and sexual abuse in childhood; Z86.19 Personal history of other infectious and parasitic diseases; Z56.0 Unemployment, unspecified
CPT/HCPCS: 36415; 80053; 80305; 80307; 85027; 86593; 86780; 93005; 93010